=== PATIENT | female | born 1990 | race African-American/Black ===

== ENCOUNTER 2018-01-03 14:17 | Emergency (ER) | payer SELFPAY ==
[~2018-01-03] VITALS: Ht 170.2 cm; Wt 91.0 kg
[2018-01-03] MEDS ORDERED: FOLI-43 PO (14:53)
[2018-01-03] MEDS ORDERED: FERR140T PO (14:53)
[2018-01-03] MEDS ORDERED: PNV1TABL76 PO (14:53)
[2018-01-03] MEDS ORDERED: [UNRECOGNIZED DRUG - REMARK] (14:53)
[2018-01-03 15:26] LABS: CLARITY URINE CLEAR (CLEAR); COLOR URINE YELLOW (YELLOW); KETONES URINE NEGATIVE (NEGATIVE); LEUKOCYTE ESTERASE URINE NEGATIVE (NEGATIVE); NITRITE URINE NEGATIVE (NEGATIVE); OCCULT BLOOD URINE NEGATIVE (NEGATIVE); PH URINE 7.5 (4.5-8.0); PROTEIN URINE NEGATIVE (NEGATIVE); SPECIFIC GRAVITY URINE 1.015 (1.005-1.030); UROBILINOGEN URINE 0.2 E.U./dL (0.2-1.0)
[2018-01-03 17:15] LABS: BASOPHILS % 0.2 % (0.0-2.0); EOSINOPHILS % 4.5 % (0.0-5.0); HEMATOCRIT. 32.4 % (36.0-48.0); HEMOGLOBIN. 11.3 g/dL (12.0-16.0); LYMPHOCYTES % 20.6 % (20.0-50.0); MEAN CORPUSCULAR HEMOGLOBIN 27.5 pg (28.0-32.0); MEAN CORPUSCULAR VOLUME 79.2 fL (81.0-99.0); MEAN PLATELET VOLUME 9.1 fl (7.4-10.4); MONOCYTES % 9.1 % (2.0-8.0); NEUTROPHILS % 65.6 % (40.0-76.0); PLATELET 227 x1000/uL (130-400); RED BLOOD CELL COUNT 4.09 mill/uL (4.2-5.4); RED CELL DISTRIBUTION WIDTH 15.8 % (11.6-14.6)
[2018-01-03 17:19] LABS: CHLORIDE 105 mEq/L (98-107)
[2018-01-03 17:48] LABS: B-HCG QUANTITATIVE 108812 mIU/mL (<3)
[2018-01-03 20:25] VITALS: BP 100/64
== END 2018-01-03 20:25 | disposition home or self-care (01) ==
LOC: ER 15:23
DX: O44.01 Complete placenta previa NOS or without hemorrhage, first trimester (principal); Z3A.12 12 weeks gestation of pregnancy; Z98.890 Other specified postprocedural states
CPT/HCPCS: 36415; 76801; 76817; 80053; 81003; 81025; 84702; 85025; 99285; Z7610